=== PATIENT | female | born 1980 | race Caucasian/White ===

== ENCOUNTER 2022-10-03 20:21 | Emergency (ER) | payer MEDICAID ==
[~2022-10-03] VITALS: Ht 172.7 cm; Wt 63.6 kg
[2022-10-03 20:36] VITALS: BP 144/75
--- NOTE | 2022-10-03 21:13 | NUR ---
pt. refused blood draw.
[2022-10-03 21:24] LABS: CLARITY,URINE CLOUDY (Clear); COLOR,URINE YELLOW (Yellow); GLUCOSE, URINE NEGATIVE (Neg); KETONES,URINE TRACE mg/dl (Neg); LEUKOCYTE ESTERASE ,URINE TRACE (Neg); NITRITES, URINE NEGATIVE (Neg); OCCULT BLOOD,URINE LARGE (Neg); PROTEIN,URINE NEGATIVE (Neg); URINE HCG NEGATIVE (NEG)
[2022-10-03 21:47] LABS: UA COLLECTION TYPE NON-SPECIFIED
[2022-10-03 21:50] LABS: BACTERIA,URINE 3+ /HPF (Neg)
[2022-10-03 21:52] LABS: MUCUS STRANDS MODERATE /LPF (Neg); SQUAMOUS EPITHELIAL CELL,UR MANY /LPF (FEW)
[2022-10-03] MEDS ORDERED: cephalexin 500mg capsule PO ONE (21:55)
[2022-10-03] MEDS ORDERED: CEPH-268 PO (21:58)
== END 2022-10-03 22:06 | disposition home or self-care (01) ==
LOC: ER 20:24
DX: N39.0 Urinary tract infection, site not specified (principal)
CPT/HCPCS: 81001; 81025; 99283

== ENCOUNTER 2022-10-31 16:35 | Emergency (ER) | payer MEDICAID ==
[~2022-10-31] VITALS: Ht 172.7 cm; Wt 56.8 kg
[2022-10-31 16:39] VITALS: BP 141/84
[2022-10-31 18:28] LABS: BASOPHILS % (AUTO) 0.7 % (0-1); EOSINOPHILS # (AUTO) 0.1 X10'3 (0-0.9); EOSINOPHILS % (AUTO) 1.4 % (0-6); HEMATOCRIT 41.3 % (35.0-45.0); HEMOGLOBIN 13.9 g/dl (12.0-16.0); LYMPHOCYTES # (AUTO) 1.2 X10'3 (1.1-4.8); LYMPHOCYTES % (AUTO) 24.3 % (21-51); MEAN CORPUSCULAR HEMOGLOBIN 32.4 PG (27.0-31.0); MEAN CORPUSCULAR HGB CONC 33.7 g/dL (33.0-36.5); MEAN CORPUSCULAR VOLUME 96.1 FL (78-98); MEAN PLATELET VOLUME 7.2 FL (7.4-10.4); MONOCYTES # (AUTO) 0.4 X10'3 (0-0.9); MONOCYTES % (AUTO) 8.2 % (2-12); NEUTROPHILS # (AUTO) 3.3 X10'3 (1.8-7.7); NEUTROPHILS % (AUTO) 65.4 % (42-75); PLATELET COUNT 364 X10'3 (140-440); RED CELL DISTRIBUTION WIDTH 12.8 % (11.5-14.5)
[2022-10-31 18:42] LABS: ALANINE AMINOTRANSFERASE 38 U/L (12-78); ALBUMIN 4.2 G/DL (3.4-5.0); ALBUMIN/GLOBULIN RATIO 1.2 (1.1-1.5); ALKALINE PHOSPHATASE 52 IU/L (46-116); ANION GAP 6 (8-16); ASPARTATE AMINO TRANSFERASE 19 U/L (10-37); BILIRUBIN,TOTAL 0.4 MG/DL (0.1-1.0); BLOOD UREA NITROGEN 20 MG/DL (7-18); BUN/CREATININE RATIO 18.2 (10.0-20.0); CALCIUM 9.6 MG/DL (8.5-10.1); CHLORIDE 100 MMOL/L (99-107); GLUCOSE 98 MG/DL (70-104); POTASSIUM 4.2 MMOL/L (3.5-5.1); SODIUM 137 MMOL/L (135-145); TOTAL CARBON DIOXIDE 31.2 MMOL/L (24-32); TOTAL PROTEIN 7.7 G/DL (6.4-8.2); eGFR 55 ML/MIN
--- NOTE | 2022-10-31 18:44 | NUR ---
PATIENT REFUSED TO HAVE XRAY DONE. STATED THAT IT'S BECAUSE "SHE DOESN'T WANT TO HURT HER BABY."
== END 2022-10-31 19:02 | disposition home or self-care (01) ==
LOC: ER 16:36
DX: N39.0 Urinary tract infection, site not specified (principal); Z88.2 Allergy status to sulfonamides
CPT/HCPCS: 36415; 80053; 85025; 99283